=== PATIENT | male | born 1945 | race Caucasian/White ===

== ENCOUNTER 2022-12-17 11:59 | Outpatient (CLI) | payer MEDICARE, SELFPAY ==
--- NOTE | ~2022-12-17 | PE_ITS ---
EXAMINATION: PET_PETPSMAST_PT DATE: 12/17/2022 15:48 INDICATION: Prostate cancer TECHNIQUE: 9.128 mCi of pipflufolastat F-18 (18-F-DCFPyL) was administered i.v. Low dose computed to mography (CT) images were acquired from the base of the brain to the base of the brain to the proxima l thighs for attenuation correction and anatomic localization. Positron emission tomography (PET) carlos ges were acquired in the same distribution beginning 80 minutes after injection. Images including fus ed PET/CT images were reconstructed in axial, coronal, and sagittal planes. Automated exposure contro l technique was employed. The dose-length product was 586.00 mGy-cm. COMPARISON: None FINDINGS: Head/neck: Typical pattern of symmetric physiologic increased activity in the lacrimal, parotid and submandibula r glands as well as along the mucosa of the nasal and oral cavities, the eugene-, naso- and hypopharynx, the glottis and esophagus. No pathologically enlarged cervical lymphadenopathy or suspicious foci of increased uptake in the visualized head or neck. Chest: Mild emphysema with mild dependent atelectasis in bilateral lower lobes. No suspicious pulmonary nodu les, pneumonia or pleural effusion. Cardiomegaly. Atherosclerotic coronary artery calcification. Post operative change of prior median sternotomy and coronary artery bypass grafting. No pericardial effus ion. Thoracic aorta is normal in caliber. No pathologically enlarged or PSMA avid thoracic lymphadeno genoveva. Small to moderate-sized sliding-type hiatal hernia. Abdomen/pelvis/proximal thighs: Physiologic renal accumulation and excretion of activity in the kidneys, bladder and along portions o f ureters. Status post prostatectomy. There is irregular contour to the activity within the bladder w hich suggests activity extending along a small anterior cervical remnant. Normal degree and slightly heterogenous pattern of increased uptake throughout the liver and spleen without radiologic correlate or dominant PSMA avid lesion. The gallbladder, pancreas and bilateral adrenal glands are normal. Mod erate uptake scattered throughout the bowels with typical duodenal and proximal jejunal predominance and without radiologic correlate, also likely physiologic. There is mild colonic diverticulosis with a sigmoid predominance. There is no adjacent inflammatory change to suggest diverticulitis. No othe r abnormal foci of increased uptake or pathologically enlarged lymphadenopathy in the abdomen, pelvis or proximal thighs. Musculoskeletal: Relatively stable appearance since 2007 of a chronic lytic lesion with narrow zone of transition with thin sclerotic margins and central fluid attenuation filling the majority the right ischial was with out abnormal activity most likely a degenerative subchondral cyst/geode related to right hip osteoart hritis. No other suspicious lytic, blastic or PSMA avid bone lesions identified. Moderate spondylosis in the cervical, thoracic and lumbar spine. L1 burst fracture with 60% anterior vertebral body heigh t loss, 3 mm retropulsion and without evident abnormal PSMA activity to suggest pathologic fracture. IMPRESSION: 1. No lesions identified suspicious for metastatic disease. Reviewed, dictated and finalized at location A.
== END 2022-12-17 12:00 | disposition home or self-care (01) ==
PROVIDERS: PCP Nurse Practitioner Family; Visit Provider Urology
DX: C61 Malignant neoplasm of prostate (principal)
CPT/HCPCS: 78815; A9595